=== PATIENT | female | born 1985 | race Caucasian/White ===

== ENCOUNTER → 2017-02-01 | Outpatient (CLI) | payer OTHER ==
[~2017-02-01] MED LIST: CALC200T3; NIFE10CA2 PO; PREN1TAB60 PO
== END | disposition home or self-care (01) ==
LOC: RAD 15:53
PROVIDERS: ATTEND Family Medicine
DX: M25.551 Pain in right hip (principal)

== ENCOUNTER → 2020-04-06 | Outpatient (CLI) | payer OTHER ==
[~2020-04-06] MED LIST changes: -NIFE10CA2 PO; +NIFE10CA49 PO
[2020-04-06 17:09] LABS: BASOPHILS % (AUTO) 1 % (0-1); EOSINOPHILS % (AUTO) 1 % (1-7); LYMPHOCYTES % (AUTO) 31 % (22-44); MEAN CORPUSCULAR HEMOGLOBIN 31.2 pg (27.0-34.8); MEAN CORPUSCULAR HGB CONC 33.7 g/dL (32.4-35.8); MEAN PLATELET VOLUME 8.6 fL (7.4-10.4); MONOCYTES % (AUTO) 8 % (2-9); NEUTROPHILS % (AUTO) 60 % (42-75); PLATELET COUNT 249 x10^3/uL (130-400); RED BLOOD COUNT 4.21 x10^6/uL (3.82-5.3); RED CELL DISTRIBUTION WIDTH 13.2 % (9.6-15.2)
[2020-04-06 17:10] LABS: HCT (SEDRATE) 38.3 % (34.6-47.8)
[2020-04-06 17:14] LABS: ALANINE AMINOTRANSFERASE 18 U/L (12-78); CREATININE 0.89 mg/dL (0.55-1.02)
[2020-04-06 17:16] LABS: MD NO
== END | disposition home or self-care (01) ==
LOC: RAD 16:14
PROVIDERS: ATTEND Family Medicine
DX: M53.3 Sacrococcygeal disorders, not elsewhere classified (principal); M54.5 Low back pain; M79.641 Pain in right hand; M79.642 Pain in left hand; M25.561 Pain in right knee; M25.562 Pain in left knee
CPT/HCPCS: 36415; 72110; 72202; 73565; 77077; 82040; 82306; 82565; 84450; 84460; 85025; 85651; 86200